=== PATIENT | female | born 1945 | race Caucasian/White ===

== ENCOUNTER → 2019-07-20 | Outpatient (CLI) | payer OTHER, MEDICARE ==
[~2019-07-20] VITALS: Ht 170.2 cm; Wt 83.9 kg
[~2019-07-20] MED LIST: ADULT LOW DOSE81 MG PO; ASPIR 8181 MG PO; AVAPRO 150 MG150 M1 PO; CALCIUM 500 +1 EAC5 PO; CALCIUM OYSTER500 MG PO; CELEXA 20 MG TA20 M1 PO; FIBER 61 EACH PO; FISHOIL; LISINOPRIL5 MG PO; MENEST0.625 MG PO; MULTI-VITAMIN1 EAC1 PO; OMEPRAZOLE 20 M20 M1 PO; SIMVASTATIN20 MG PO; SIMVASTATIN40 MG PO; STOOL SOFTENER240 MG PO; SYNTHROID112 MCG PO; TIROSINT100 MCG PO; VITAMIN D-32000 UNIT PO; VITAMIN D400 UNI1 PO
[2019-07-20 07:21] VITALS: BP 131/57
[2019-07-20 07:45] LABS: HEMATOCRIT 35.1 % (37.0-47.0); HEMOGLOBIN 12.1 gm/dL (12.0-15.0); MCH 33.9 pg (26.0-34.0); MCHC 34.5 g/dL (28.0-37.0); MCV 98.3 fL (80.0-100.0); RBC 3.58 mil/uL (4.20-5.00); RDW 12.6 % (10.5-14.5); WBC 4.3 thou/uL (4.0-11.0)
[2019-07-20 07:54] LABS: CALCIUM 8.8 mg/dL (8.5-10.1); CREATININE 0.8 mg/dL (0.6-1.0)
--- NOTE | 2019-07-23 09:32 | CATHLAB ---
[facility] [address] [place] [address] INVASIVE PROCEDURE REPORT Name: DELLAFLORINDA TIFFANIE Room #: REG Milad#: [id number] ������������� Admission: 07/20/19 ������������� Attend Phys: Jim Stacy, Discharge: ��� ������������� ��� Date of : 43 �������������������� �� Report #: [id number] �������� ��������������������������������������������[id number] THIS REPORT FOR: //name// APPROVED REPORT Study performed: 07/20/2019 07:11:01 Patient Details Patient Status: Out-Patient Room #: The patient is a 74 year-old female Event Personnel Jim Stacy Instruction Librarian, Jaswant Ponce RN, Martínez Miramontes RTR Scrub, Rukhsana Lobo RTR, CLIENT SERVICES VICE PRESIDENT Monitor, Mandeep Sidhu RTR Monitor, Barrington Marley RTR Scrub Procedures Performed Art Access - R femoral artery* Jaspreet Access - R femoral vein Renal Bilateral Peripheral Angiography 7457625 CVRENALBIL Right and Left Heart Cath w/or w/o Coronarie 9704506 RLHC Aortogram Abdominal Peripheral Angio 868561 87188 Initial Mod Sed Same Phys/QHP Gr5y 217023 71376 Mod Sed Same Phys/QHP Ea 241608 Hemostasis w/ Mynx Indication Chest pain Procedure Narrative The Right Groin^ was infiltrated with 1% Lidocaine subcutaneous anesthesia. A Right Heart Catheterization was performed with a 7 Fr. [place]-Neetu catheter and pressure were recorded. Cardiac outputs were obtained by the Thermal Dilution method. A PINNACLE 6FR Sheath #[id number] sheath was inserted into the RFA 6 FAROESE^. Coronary angiography was performed using coronary diagnostic catheters. The right coronary system was accessed and visualized with a JR4 catheter. The left coronary system was accessed and visualized with a JL4 catheter. The left ventricle was accessed and visualized with a pigtail catheter. Left ventricular/Aortic Valve gradient assessed via catheter pullback. Left ventriculogram was performed in 30 degree projection. Pre-demployment femoral angiogram was performed . Closure device was deployed with a Fr MYNXGRIP 6/7F #[id number]. Hemostasis was obtained with manual pressure following sheath removal without any complications. The patient tolerated the procedure well and there were no complications associated with the procedure. There was no hematoma. [facility] [address] [place] [address] INVASIVE PROCEDURE REPORT Name: FLORINDA HULL TIFFANIE Room #: REG CL Milad#: [id number] ������������� Admission: 07/20/19 ������������� Attend Phys: Jim Stacy, Discharge: ��� ������������� ��� Date of : 43 �������������������� �� Report #: [id number] �������� ��������������������������������������������[id number] Intraoperative Conscious Sedation Sedation start time: 8:46 Case end Time: 9:21 Fentanyl 50 mcg Versed 2 mg Fluoro Time: 2.13 minutes Dose: DAP 3194.80 cGycm2 359 mGy Contrast Type and Amount: Omnipaque 120 ml Hemodynamics The right atrial mean pressure is 9 mmHg. The right ventricular pressure is 36/5 mmHg. The pulmonary artery pressure is 34/9 mmHg with a mean of 21 mmHg. The mean pulmonary capillary wedge pressure is 19 mmHg. The aortic pressure is 145/61 mmHg with a mean of 98 mmHg. The left ventricular pressure is 160/8 mmHg with a mean of mmHg. The left ventricular end diastolic pressure is 18 mmHg. The cardiac output using thermo method is 4.93 L/min. The cardiac index using thermo method is 2.52 L/min/m2. Conclusion #1 successful right heart catheterization with hemodynamics as stated above #2 left main with mild disease giving rise to LAD and circumflex #3 LAD with proximal calcification and eccentric proximal mid vessel lesion of 30-40% not flow limiting. Mild disease in diagonal system #4 small nondominant circumflex no occlusive disease #5 large dominant right coronary artery no occlusive disease #6 selective bilateral renal angiography due to suspected renal atherosclerosis and refractory hypertension. Reveals no occlusive disease in the bilateral renal arteries Recommendations plan: Continue aggressive risk factor modification. There is no indication for coronary intervention. Pulmonary pressures are only mildly elevated. Etiology of shortness of breath is not clear what defer back to pulmonary. ��������������������������������������������� <ELECTRONICALLY SIGNED> ���������������������������������������� By: Jim Stacy MD, FACC ��������������������������������������������� 07/23/19930 0 0 Jim Stacy MD, FACC /INF
== END | disposition home or self-care (01) ==
LOC: CATH 06:43
PROVIDERS: Internal Medicine Cardiovascular Disease
DX: R07.9 Chest pain, unspecified (principal); I25.10 Atherosclerotic heart disease of native coronary artery without angina pectoris; E03.9 Hypothyroidism, unspecified; D64.9 Anemia, unspecified; K21.9 Gastro-esophageal reflux disease without esophagitis; Z85.3 Personal history of malignant neoplasm of breast; Z90.49 Acquired absence of other specified parts of digestive tract; Z90.710 Acquired absence of both cervix and uterus; Z98.890 Other specified postprocedural states; Z79.899 Other long term (current) drug therapy; Z88.6 Allergy status to analgesic agent; Z88.8 Allergy status to other drugs, medicaments and biological substances; Z79.82 Long term (current) use of aspirin

== ENCOUNTER → 2020-01-29 | Outpatient (CLI) | payer OTHER, MEDICARE | LOC: SJCVC 14:00 | PROVIDERS: ATTEND Internal Medicine Cardiovascular Disease | DX: I08.0 Rheumatic disorders of both mitral and aortic valves (principal); I10 Essential (primary) hypertension; I25.10 Atherosclerotic heart disease of native coronary artery without angina pectoris; E78.00 Pure hypercholesterolemia, unspecified; Z85.3 Personal history of malignant neoplasm of breast ==

== ENCOUNTER 2020-07-16 19:30 | Inpatient (IN) | payer OTHER, MEDICARE ==
[~2020-07-16] VITALS: Ht 170.2 cm; Wt 84.4 kg
--- NOTE | ~2020-07-16 | EMS ---
[address] [address] EMS Patient Care Report Name: FLORINDA HULL Room #: REG TY Stinson#: [id number] Admission: 07/16/20 Attend Phys: Discharge: Date of : 43 Report #: [id number] THIS REPORT FOR: //name// Report Transmitted: 07/16/2020 19:11 EMS Care Summary [facility] MED-ACT Incident [id number] @ 07/16/2020 18:42 Incident Location [id number] [place] [address] Patient FLORINDA HULL Female, 75 Years 1945 Patient Address [address] [place] [address] Patient History Hypertension (HTN),Cardiac Condition - Other, Patient Allergies Codeine,Theophylline, Patient Medications Irbesartan, Torsemide, Atorvastatin, Aspirin, Simvastatin, Chief Complaint "I don't know what happened" Disposition Transported No Lights/[place] Reason Convulsions/Seizure Transported To [facility] Narrative Arrived to find pt lying supine on the ground outside of a residence just off the sidewalk. Pt was alert and bystanders were with pt. Bystanders report pt was walking and suddenly became light-headed and had a syncopal episode. Pt was lowered to the ground by her and proceeded to have "jerking motions" [address] [address] EMS Patient Care Report Name: FLORINDA HULL Room #: REG [facility].#: [id number] Admission: 07/16/20 Attend Phys: Discharge: Date of : 43 Report #: [id number] for a few seconds. When pt regained consciousness, she was alert and did not remember feeling light-headed. She states she has felt fine all day. 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 Her Behavioral Health Technician reported she had a "leaky valve, a hard heart muscle and arthrosclerosis." She was told to start a diuretic and double the dose of one of her HTN medications. She took the new med and new dose this afternoon. Upon EMS contact pt reported she felt fine. Pt denied SOA, pain, N/V, dizziness. Pt was assisted to a sitting position and remained asymptomatic. She was able to get off the ground and transfer to cot without incidence. Pt was secured to cot and taken to MICU for further evaluation. Once VS, ECG, 12-lead were done, pt made the decision to be transported. An IV was established en route. No changes in pt's condition en route. Pt was able to scoot onto the ED bed upon arrival at [facility]. Verbal report given to RN. Initial Vitals @19:02P: 86,SpO2: 94,NM Suspected: false @19:22P: 85,R: 18,BP: 128/72,Glucose: 90,SpO2: 97, @18:58P: 91,R: 18,BP: 106/55,Pain: 0/10,GCS: 15,SpO2: 95,Revised Trauma: 12,NM Suspected: false @19:10P: 86,R: 18,BP: 127/74,Pain: 0/10,SpO2: 96, Assessments @19:50MENTAL:Person Oriented,Time Oriented,Place Oriented,Event Oriented,SKIN:Diaphoresis,HEENT:Head/Face: No Abnormalities,Eyes: No Abnormalities,Neck/Airway: No Abnormalities,LUNG SOUNDS:General: No Abnormalities,ABDOMEN:General: No Abnormalities,PELVIS//GI:EXTREMITIES:PULSE:NEURO:No Abnormalities, Impression Syncope / Fainting Procedures @19:10Saline Lock 10cc (18 ga) Site: Antecubital-RightResponse: UnchangedSucceeded@19:0212-Lead ECGResponse: UnchangedSucceeded@19:00Surgical Mask on PatientResponse: Unchanged Timeline 18:41,Call Received 18:41,Psap Call 18:42,Dispatched 18:43,En Route 18:48,On Scene 18:49,At Patient 18:58,BP: 106/55 M,PULSE: 91,RR: 18 R,SPO2: 95 Ox,ETCO2: ,BG: ,PAIN: 0,GCS: 15, 19:00,Surgical Mask on Patient,Response: Unchanged [facility] [address] [place] [address] EMS Patient Care Report Name: FLORINDA HULL TIFFANIE Room #: REG TY Stinson#: [id number] Admission: 07/16/20 Attend Phys: Discharge: Date of : 43 Report #: [id number] 19:02,12-Lead ECG,Response: UnchangedSucceeded, 19:02,BP: / M,PULSE: 86,RR: R,SPO2: 94 Ox,ETCO2: ,BG: ,PAIN: ,GCS: , 19:07,Depart Scene 19:10,Saline Lock 10cc 18 ga Site: Antecubital-Right,Response: UnchangedSucceeded, 19:10,BP: 127/74 M,PULSE: 86,RR: 18 R,SPO2: 96 Ox,ETCO2: ,BG: ,PAIN: 0,GCS: , 19:22,BP: 128/72 M,PULSE: 85,RR: 18 R,SPO2: 97 Ox,ETCO2: ,B,PAIN: ,GCS: , 19:24,At Destination 19:51,Call Closed Disclaimer v1.1 Copyright 2020 [employer] This EMS Care Summary contains data elements from the applicable legal record (which may be displayed differently). It is designed to provide pertinent information for the following purposes: continuity of care, clinical quality, and state data reporting. The complete legal record is available to ED staff and administrators of the receiving hospital in [employer]'s Patient Tracker. All data is provided "as is."
[2020-07-16 19:30] VITALS: BP 140/53
[~2020-07-16 19:30] MED LIST changes: -LIPITOR40 MG PO; -PROBIOTIC1 EAC1 PO; -PROBIOTIC1 EAC7 PO; -TORSEMIDE10 MG PO
[2020-07-16 19:59] LABS: HEMATOCRIT 34.1 % (37.0-47.0); MCH 34.6 pg (26.0-34.0); MCHC 35.3 g/dL (28.0-37.0); MCV 97.9 fL (80.0-100.0); RBC 3.48 mil/uL (4.20-5.00); RDW 12.3 % (10.5-14.5); WBC 5.5 thou/uL (4.0-11.0)
[2020-07-16 20:11] LABS: ANION GAP 12 mmol/L (7-16); BUN 15 mg/dL (7-18); CALCIUM 8.9 mg/dL (8.5-10.1); CHLORIDE 96 mmol/L (98-107); CO2 25 mmol/L (21-32); CREATININE 0.8 mg/dL (0.6-1.0); GLUCOSE 103 mg/dL (74-106); POTASSIUM 4.1 mmol/L (3.5-5.1); SODIUM 133 mmol/L (136-145)
[2020-07-16 20:13] LABS: TROPONIN-I <0.06 ng/mL (<0.06)
[2020-07-16 20:16] LABS: APTT 27.1 Seconds (24.5-32.8); PROTIME 10.4 Seconds (9.3-11.4)
[2020-07-16] MEDS ORDERED: TORSEMIDE10 MG PO (20:21)
[2020-07-16] MEDS ORDERED: LIPITOR40 MG PO (20:22)
[2020-07-16] MEDS ORDERED: PROBIOTIC1 EAC7 PO (20:23)
[2020-07-16] MEDS ORDERED: PROBIOTIC1 EAC1 PO (20:26)
[2020-07-16 21:31] LABS: URINE BILIRUBIN NEGATIVE (Negative); URINE BLOOD NEGATIVE (Negative); URINE CLARITY CLEAR; URINE COLOR YELLOW; URINE GLUCOSE-RANDOM* NEGATIVE (Negative); URINE KETONES NEGATIVE (Negative); URINE NITRITE-REFLEX NEGATIVE (Negative); URINE PROTEIN (DIPSTICK) NEGATIVE (Negative); URINE UROBILINOGEN 0.2 E.U./dl (0.2-1.0)
[2020-07-16 21:46] LABS: URINE LEUKOCYTES-REFLEX 1+ (Negative)
[2020-07-16 21:53] LABS: SQUAMOUS 0-3 Few /LPF (0-3)
[2020-07-16 21:54] LABS: BACTERIA-REFLEX 1-9 Few /HPF (None Seen); CASTS None Seen /LPF (None Seen); CRYSTALS None Seen /LPF (None Seen); URINE RBC None Seen /HPF (0-2); URINE WBC-REFLEX 0-5 Rare /HPF (0-5)
[2020-07-16 23:28] VITALS: BP 102/44
--- NOTE | 2020-07-16 23:29 | NUR ---
Attempted to call report to medical nurse. Unable to take report and will call back.
--- NOTE | 2020-07-16 23:55 | NUR ---
Report attempted to [facility] nurse. Unable to take report
[2020-07-17] VITALS (10 sets, daily range): BP systolic 114–137; BP diastolic 47–73
--- NOTE | 2020-07-17 04:10 | NUR ---
ASSUMED PT CARE AT 0020. PT IS A&OX4. IV IS IN RIGHT AC, NS RUNNING AT 50 MLS/HR. PT IS ON ROOM AIR. PT DENIES PAIN. PT IS WEARING BILATERAL SCD'S. PT IS A LITTLE UNSTEADY ON HER FEET.PT HAS BEEN INSTRUCTED TO CALL NURSES STATION WHEN SHE NEEDS TO GET UP. PT MAKES NEEDS KNOWN. PT IS SLEEPING IN HER ROOM. WILL CONTINUE TO MONITOR.
--- NOTE | 2020-07-17 04:16 | NUR ---
Pt admitted from ED approx 0020. A/OX4,VSS. Up with SBA d/t syncope episode,orthostatic BP's WNL.Denies pain on assessment, has a non productive cough and LOPEZ at times. Fall education reinforced,agrees to call for help as needed. Skin C/D/I. No N/V.IVF infusing via RAC w/o problems. Fall precautions in place. Resting quietly.
[2020-07-17 05:58] LABS: HEMATOCRIT 32.8 % (37.0-47.0); HEMOGLOBIN 11.4 gm/dL (12.0-15.0); MCH 34.3 pg (26.0-34.0); MCHC 34.7 g/dL (28.0-37.0); MCV 98.8 fL (80.0-100.0); RBC 3.32 mil/uL (4.20-5.00); RDW 12.9 % (10.5-14.5); WBC 5.2 thou/uL (4.0-11.0)
[2020-07-17 06:57] LABS: ANION GAP 10 mmol/L (7-16); BUN 17 mg/dL (7-18); CALCIUM 8.7 mg/dL (8.5-10.1); CHLORIDE 100 mmol/L (98-107); CO2 24 mmol/L (21-32); CREATININE 0.9 mg/dL (0.6-1.0); GLUCOSE 90 mg/dL (74-106); POTASSIUM 4.2 mmol/L (3.5-5.1); SODIUM 134 mmol/L (136-145); TROPONIN-I <0.06 ng/mL (<0.06)
--- NOTE | 2020-07-17 08:22 | EKG ---
[facility] [place] [address] ELECTROCARDIOGRAM REPORT Name: DELLAFLORINDA TIFFANIE Room #: 456-P ADM IN M.R.#: [id number] Admission: 07/16/20 Attend Phys: Sung Monahan Discharge: Date of : 43 Report #: [id number] THIS REPORT FOR: cc: Kory Mcgovern MD, Bernard O. MD Couchonnal, Luis F. 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
--- NOTE | 2020-07-17 12:53 | NUR ---
Pt REFUSED P.T. EVAL D/T HAVING NO ISSUES WITH ANY OF HER MOBILITY. Pt STATES THAT SHE HAS BEEN GETTING AROUND JUST FINE WHILE SHE HAS BEEN HERE AND IS SAFE AND DOES NOT NEED ANY P.T. AT ALL. Pt AND NSG INSTR TO HAVE Pt AMBULATE WITH NSG IN THE HALLWAYS WHILE SHE IS HERE TO KEEP UP HER STRENGTH AND ENDURANCE.
--- NOTE | 2020-07-17 13:42 | NUR ---
PT ADMITTED RLEATED TO SYNCOPAL EPISODE. CM REVIEWED CHART AND SPOKE WITH CARE TEAM. CM CALLED AND SPOKE WITH PT'S SPOUSE AT BEDSIDE HE INDICATED THEY LIVE IN A RANCH STYLE HOUSE WITH NO STEPS TO ENTER AND NO STEPS INSIDE. 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 HE INDICATED NO HH HX. PCPC ID DR. ANNE-MARIE VILLATORO. SPOUSE INDICATED THEY ANTICPATE PT RETURNING HOME ONCE MEDICALLY STABLE. CARE TEAM MENTIONED POSSIBLE NEED FOR OUTPATIENT EVENT RECORDER. CM TO FOLLOW INDICATED WITH DC PLANNING.
--- NOTE | 2020-07-17 16:47 | NUR ---
PT A&OX4, VSS, DENIES PAIN. PATIENT AT BEDSIDE. PATIENT DENIES SOA, DIZZINESS. PATIENT STEADY ON FEET TO BATHROOM. ORTHOSTATIC BP TAKEN. NO SIGNS OF DISTRESS. WILL CONTINUE TO MONITOR.
--- NOTE | 2020-07-18 04:16 | NUR ---
ASSUMED PT CARE AT 1915. PT IS A&OX4. PT VITAL SIGNS STABLE. PT HAS NO COMPLAINTS OF PAIN. PT MAKES NEEDS KNOWN. PT TAKES MEDICATION WHOLE. PT STATES UNDERSTANDING OF NEW EDUCATION KNOWN.PT TOOK A SPOT BATH. PT IS LOOKING FORWARD TO GOING HOME. WILL CONTINUE TO MONITOR.
[2020-07-18 07:24] VITALS: BP 127/57
[2020-07-18 09:27] VITALS: BP 127/57
[2020-07-18 10:38] VITALS: BP 127/57
--- NOTE | 2020-07-18 11:24 | NUR ---
PT IS A&OX4, VSS, DENIES PAIN. DENIES SOA, DIZZINESS, N/V. IV REMOVED. PATIENT AT BEDSIDE. NO SIGNS OF DISTRESS. PATIENT AWARE OF CARDIOLOGY APPOINTMENT. PATIENT AWARE TO TAKE 150MG IRBESARTAN INSTEAD OF 300MG SHE WAS TAKING. CONTINUED MED LIST WENT OVER WITH PATIENT. NO SIGNS OF DISTRESS AT DISCHARGE.
== END 2020-07-18 11:53 | disposition home or self-care (01) | DRG 315 ==
LOC: ER 19:30 → EROBS 23:22 → 4W 23:22
PROVIDERS: Emergency Medicine; Nurse Practitioner Family; ADMIT Hospitalist; ATTEND Hospitalist
DX: I95.9 Hypotension, unspecified (principal); E87.1 Hypo-osmolality and hyponatremia; E03.9 Hypothyroidism, unspecified; K21.9 Gastro-esophageal reflux disease without esophagitis; I25.10 Atherosclerotic heart disease of native coronary artery without angina pectoris; K59.00 Constipation, unspecified; I08.0 Rheumatic disorders of both mitral and aortic valves; G47.00 Insomnia, unspecified; Z85.3 Personal history of malignant neoplasm of breast; Z92.21 Personal history of antineoplastic chemotherapy; Z92.3 Personal history of irradiation; Z90.49 Acquired absence of other specified parts of digestive tract; Z90.710 Acquired absence of both cervix and uterus; Z90.13 Acquired absence of bilateral breasts and nipples; Z88.6 Allergy status to analgesic agent; Z79.899 Other long term (current) drug therapy
CPT/HCPCS: 10045

== ENCOUNTER → 2020-07-16 | Outpatient (CLI) | payer OTHER, MEDICARE ==
[~2020-07-16] MED LIST changes: +LIPITOR40 MG PO; +PROBIOTIC1 EAC1 PO; +PROBIOTIC1 EAC7 PO; +TORSEMIDE10 MG PO
== END ==
LOC: SJCVC 11:06 → SJCVCIMAG 11:06
PROVIDERS: ATTEND Internal Medicine Cardiovascular Disease
DX: I08.0 Rheumatic disorders of both mitral and aortic valves (principal); I11.9 Hypertensive heart disease without heart failure; I25.10 Atherosclerotic heart disease of native coronary artery without angina pectoris; E78.00 Pure hypercholesterolemia, unspecified; Z79.899 Other long term (current) drug therapy; Z85.3 Personal history of malignant neoplasm of breast

== ENCOUNTER → 2020-07-28 | Outpatient (CLI) | payer OTHER, MEDICARE ==
[~2020-07-28] MED LIST changes: +LIPITOR40 MG PO; +PROBIOTIC1 EAC1 PO; +PROBIOTIC1 EAC7 PO; +TORSEMIDE10 MG PO
== END ==
LOC: SJCVC 09:58
PROVIDERS: ATTEND Internal Medicine Cardiovascular Disease
DX: I25.10 Atherosclerotic heart disease of native coronary artery without angina pectoris (principal); I10 Essential (primary) hypertension; E78.00 Pure hypercholesterolemia, unspecified; I08.0 Rheumatic disorders of both mitral and aortic valves; R06.09 Other forms of dyspnea; R68.89 Other general symptoms and signs; Z79.899 Other long term (current) drug therapy; Z87.898 Personal history of other specified conditions

== ENCOUNTER → 2020-08-05 | Outpatient (CLI) | payer OTHER, MEDICARE | LOC: RAD 14:44 | PROVIDERS: ATTEND Internal Medicine | DX: J98.4 Other disorders of lung (principal); M25.78 Osteophyte, vertebrae ==

== ENCOUNTER → 2020-11-10 | Outpatient (CLI) | payer OTHER, MEDICARE | LOC: SJCVCIMAG 09:02 | PROVIDERS: ATTEND Internal Medicine Cardiovascular Disease | DX: I08.3 Combined rheumatic disorders of mitral, aortic and tricuspid valves (principal); I10 Essential (primary) hypertension; E78.5 Hyperlipidemia, unspecified; Z79.82 Long term (current) use of aspirin; Z79.899 Other long term (current) drug therapy; Z85.3 Personal history of malignant neoplasm of breast; Z92.21 Personal history of antineoplastic chemotherapy ==

== ENCOUNTER 2021-01-27 13:54 | Emergency (ER) | payer OTHER, MEDICARE ==
[~2021-01-27] VITALS: Ht 170.2 cm; Wt 72.6 kg
--- NOTE | ~2021-01-27 | EMS ---
[facility] [address] [place] [address] EMS Patient Care Report Name: FLORINDA HULL Room #: REG TY Stinson#: [id number] Admission: 01/27/21 Attend Phys: Discharge: Date of : 43 Report #: [id number] THIS REPORT FOR: //name// Report Transmitted: 01/27/2021 15:22 EMS Care Summary [facility] MED-ACT Incident [id number] @ 01/27/2021 13:13 Incident Location [address] [place] [address] Patient NEDA HULL Female, 75 Years 1945 Patient Address [address] [place] [address] Patient History Chronic Obstructive Pulmonary Disease (COPD),Breast Cancer,Cardiac Condition - Other,Anemia, Patient Allergies Codeine,Theophylline, Patient Medications Torsemide, Other, Simvastatin, Levothyroxine, Aspirin, Chief Complaint syncope Disposition Transported No Lights/[place] Reason Unknown Problem/Person Down Transported To [facility] Narrative Arrived to find pt seated at table in restaurant in the presence of family member and [employer]32 personnel. [facility] [address] [place] [address] EMS Patient Care Report Name: FLORINDA HULL Room #: REG Sylvie.#: [id number] Admission: 01/27/21 Attend Phys: Discharge: Date of : 43 Report #: [id number] Pts niece reports pt was seated at the table and had finished her lunch. Pt was just drinking a glass of wine and all the sudden she just "slumped down in her chair". Pt did pass-out for a brief period of time but then came to. Pt reports she was seated at the table and felt like she needed to use the restroom. Pt also reports that she just feels "cloudy" all of the sudden. Pt denies any chest pain, sob, headache, speech problems, blurred vision, dizziness or recent illness. Pt was moving around during original blood pressure assessment so we weren't able to obtain an accurate reading. Pt was assisted to the cot and laid in the supine position. Pt reported feeling a little better supine and her skin color improved. Pt secured with cot straps and taken to MICU for further assessment and transported non-emergent to [facility] as pt requested. Pt condition remained unchanged throughout transport. Pt was able to self-transfer from cot to hospital bed without incident. Pt report and transfer of care given to HEALTH AND PHYSICAL EDUCATION TEACHER room #10. Initial Vitals @13:30P: 76,FL Suspected: false @13:28P: 75,SpO2: 99,FL Suspected: false @13:24P: 78,R: 16,BP: 120/64,GCS: 15,Temp: 95.8F,Glucose: 89,SpO2: 100,Revised Trauma: 12, @PTAP: 75,R: 18,GCS: 15,SpO2: 99, @13:47P: 75,R: 16,BP: 129/77,Pain: 0/10,GCS: 15,SpO2: 100,Revised Trauma: 12, Assessments @13:24MENTAL:Person Oriented,Time Oriented,Event Oriented,Place Oriented,SKIN:Diaphoresis,Pale,HEENT:Head/Face: No Abnormalities,Neck/Airway: No Abnormalities,LUNG SOUNDS:General: No Abnormalities,ABDOMEN:General: No Abnormalities,PELVIS//GI:EXTREMITIES:Left Arm: No Abnormalities,Right Arm: No Abnormalities,Left Leg: No Abnormalities,Right Leg: No Abnormalities,PULSE:Radial: 2+ Normal,NEURO: Impression Syncope / Fainting Procedures @13:24Surgical Mask on PatientResponse: Unchanged@13:39Saline Lock 10cc (20 ga) Site: Hand-RightResponse: UnchangedSucceeded@13:3012-Lead ECG Timeline REHABILITATION CLERK,BP: / M,PULSE: 75,RR: 18 R,SPO2: 99 Ox,ETCO2: ,BG: ,PAIN: ,GCS: 15, [facility] [address] [place] [address] EMS Patient Care Report Name: FLORINDA HULL Room #: REG [facility].#: [id number] Admission: 01/27/21 Attend Phys: Discharge: Date of : 43 Report #: [id number] 13:12,Call Received 13:12,Psap Call 13:13,Dispatched 13:14,En Route 13:18,On Scene 13:20,At Patient 13:24,Surgical Mask on Patient,Response: Unchanged 13:24,BP: 120/64 M,PULSE: 78,RR: 16 R,SPO2: 100 Ox,ETCO2: ,B,PAIN: ,GCS: 15, 13:28,BP: / M,PULSE: 75,RR: R,SPO2: 99 Ox,ETCO2: ,BG: ,PAIN: ,GCS: , 13:30,12-Lead ECG, 13:30,BP: / M,PULSE: 76,RR: R,SPO2: Ox,ETCO2: ,BG: ,PAIN: ,GCS: , 13:39,Saline Lock 10cc 20 ga Site: Hand-Right,Response: UnchangedSucceeded, 13:42,Depart Scene 13:47,BP: 129/77 M,PULSE: 75,RR: 16 R,SPO2: 100 Ox,ETCO2: ,BG: ,PAIN: 0,GCS: 15, 13:51,At Destination 14:15,Call Closed Disclaimer v1.1 Copyright 2020 [employer] This EMS Care Summary contains data elements from the applicable legal record (which may be displayed differently). It is designed to provide pertinent information for the following purposes: continuity of care, clinical quality, and state data reporting. The complete legal record is available to ED staff and administrators of the receiving hospital in [employer]'s Patient Tracker. All data is provided "as is."
[2021-01-27 15:16] LABS: URINE BILIRUBIN NEGATIVE (Negative); URINE BLOOD NEGATIVE (Negative); URINE CLARITY CLEAR; URINE COLOR YELLOW; URINE GLUCOSE-RANDOM* NEGATIVE (Negative); URINE KETONES NEGATIVE (Negative); URINE LEUKOCYTES-REFLEX TRACE (Negative); URINE NITRITE-REFLEX NEGATIVE (Negative); URINE PROTEIN (DIPSTICK) NEGATIVE (Negative); URINE SPECIFIC GRAVITY 1.015 (1.005-1.035); URINE UROBILINOGEN 0.2 E.U./dl (0.2-1.0)
[2021-01-27 15:21] LABS: ABSOLUTE NEUTROPHILS 5.9 thou/uL (1.4-8.2); BASOPHILS 0.7 % (0.0-2.0); EOSINOPHILS 1.1 % (0.0-3.0); HEMATOCRIT 35.3 % (37.0-47.0); HEMOGLOBIN 12.2 gm/dL (12.0-15.0); LYMPHOCYTES 14.6 % (24.0-44.0); MCH 34.1 pg (26.0-34.0); MCHC 34.5 g/dL (28.0-37.0); MCV 98.9 fL (80.0-100.0); MONOCYTES 7.9 % (1.0-8.0); PLATELET COUNT 232 thou/uL (150-400); POLYS 75.7 % (36.0-66.0); RBC 3.57 mil/uL (4.20-5.00); WBC 7.8 thou/uL (4.0-11.0)
--- NOTE | 2021-01-27 15:22 | EKG ---
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
[2021-01-27 15:28] LABS: ANION GAP 7 mmol/L (7-16); BUN 24 mg/dL (7-18); CALCIUM 8.8 mg/dL (8.5-10.1); CHLORIDE 93 mmol/L (98-107); CO2 27 mmol/L (21-32); CREATININE 1.2 mg/dL (0.6-1.0); GLUCOSE 88 mg/dL (74-106); POTASSIUM 4.1 mmol/L (3.5-5.1); SODIUM 127 mmol/L (136-145)
[2021-01-27 15:37] LABS: TROPONIN-I <0.06 ng/mL (<0.06)
[2021-01-27 17:02] VITALS: BP 143/56
== END 2021-01-27 17:02 | disposition home or self-care (01) ==
LOC: ER 13:54
PROVIDERS: Nurse Practitioner
DX: R55 Syncope and collapse (principal); E03.9 Hypothyroidism, unspecified; K21.9 Gastro-esophageal reflux disease without esophagitis; Z90.49 Acquired absence of other specified parts of digestive tract; Z90.710 Acquired absence of both cervix and uterus; Z90.89 Acquired absence of other organs; Z86.2 Personal history of diseases of the blood and blood-forming organs and certain disorders involving the immune mechanism; Z79.899 Other long term (current) drug therapy; Z79.82 Long term (current) use of aspirin; Z88.8 Allergy status to other drugs, medicaments and biological substances; Z88.5 Allergy status to narcotic agent

== ENCOUNTER → 2021-01-30 | Outpatient (CLI) | payer OTHER, MEDICARE | LOC: SJCVC 13:49 | PROVIDERS: ATTEND Nurse Practitioner | DX: I25.10 Atherosclerotic heart disease of native coronary artery without angina pectoris (principal); E78.00 Pure hypercholesterolemia, unspecified; R55 Syncope and collapse; I10 Essential (primary) hypertension; I08.0 Rheumatic disorders of both mitral and aortic valves; D64.9 Anemia, unspecified; E03.9 Hypothyroidism, unspecified; J18.9 Pneumonia, unspecified organism; D58.8 Other specified hereditary hemolytic anemias; Z85.3 Personal history of malignant neoplasm of breast ==

== ENCOUNTER → 2021-08-10 | Outpatient (CLI) | payer OTHER, MEDICARE | LOC: SJCVC 11:04 | PROVIDERS: ATTEND Internal Medicine Cardiovascular Disease | DX: I25.10 Atherosclerotic heart disease of native coronary artery without angina pectoris (principal); I08.0 Rheumatic disorders of both mitral and aortic valves; I10 Essential (primary) hypertension; E78.00 Pure hypercholesterolemia, unspecified; R55 Syncope and collapse; E03.9 Hypothyroidism, unspecified; Z88.5 Allergy status to narcotic agent; Z88.8 Allergy status to other drugs, medicaments and biological substances; Z79.82 Long term (current) use of aspirin; Z79.899 Other long term (current) drug therapy; Z72.89 Other problems related to lifestyle ==

== ENCOUNTER 2021-09-06 19:27 | Emergency (ER) | payer OTHER, MEDICARE ==
[~2021-09-06] VITALS: Ht 167.6 cm; Wt 83.9 kg
[2021-09-06] MEDS ORDERED: SIMVASTATIN80 MG PO (19:38)
[2021-09-06] MEDS ORDERED: VITAMIN B COMP1 EACH PO (19:38)
[2021-09-06] MEDS ORDERED: TRELEGY ELLIPT1 EAC1 INH (19:39)
[2021-09-06 20:21] LABS: ABSOLUTE NEUTROPHILS 4.8 thou/uL (1.4-8.2); BASOPHILS 0.8 % (0.0-2.0); EOSINOPHILS 2.3 % (0.0-3.0); HEMATOCRIT 36.4 % (37.0-47.0); HEMOGLOBIN 12.4 gm/dL (12.0-15.0); LYMPHOCYTES 20.3 % (24.0-44.0); MCH 33.4 pg (26.0-34.0); MCV 98.1 fL (80.0-100.0); MONOCYTES 8.7 % (1.0-8.0); PLATELET COUNT 208 thou/uL (150-400); POLYS 67.9 % (36.0-66.0); RBC 3.71 mil/uL (4.20-5.00); RDW 13.1 % (10.5-14.5)
[2021-09-06 20:21] LABS: URINE BILIRUBIN NEGATIVE (Negative); URINE BLOOD NEGATIVE (Negative); URINE CLARITY CLEAR; URINE COLOR YELLOW; URINE GLUCOSE-RANDOM* NEGATIVE (Negative); URINE KETONES NEGATIVE (Negative); URINE NITRITE-REFLEX NEGATIVE (Negative); URINE PROTEIN (DIPSTICK) NEGATIVE (Negative); URINE UROBILINOGEN 0.2 E.U./dl (0.2-1.0)
[2021-09-06 20:23] LABS: URINE LEUKOCYTES-REFLEX 1+ (Negative)
[2021-09-06 20:34] LABS: CALCIUM 8.8 mg/dL (8.5-10.1); CREATININE 0.8 mg/dL (0.6-1.0)
[2021-09-06 20:40] LABS: BACTERIA-REFLEX 1-9 Few /HPF (None Seen); CASTS None Seen /LPF (None Seen); CRYSTALS None Seen /LPF (None Seen); SQUAMOUS 0-3 Few /LPF (0-3); URINE RBC 1-2 Rare /HPF (NONE SEEN); URINE WBC-REFLEX 0-5 Rare /HPF (0-5)
[2021-09-06 20:44] LABS: ALBUMIN 3.7 g/dL (3.4-5.0); MAGNESIUM 2.1 mg/dL (1.8-2.4); TOTAL BILIRUBIN 0.3 mg/dL (0.2-1.0); TOTAL PROTEIN 7.1 g/dL (6.4-8.2)
[2021-09-06 21:22] VITALS: BP 136/56
--- NOTE | 2021-09-07 07:18 | EKG ---
[place] [address] [address] [facility] [place] [address] ELECTROCARDIOGRAM REPORT Name: HULLFLORINDA STEVENS [facility] [id number] Admission: 09/06/21 Attend Phys: Discharge: 09/06/21 Date of : 43 Report #: [id number] [facility] ED Test Date: 2021-09-06 Test Time: 20:00:28 Pat Name: FLORINDA HULL Department: Room: Gender: F Naturalization Examiner: : 1945 Requested By: Rodrick Phillips Order Number: [id number] MD: Fred Damico Measurements Intervals [place] Rate: 79 P: 38 [place]: 175 QRS: 33 QRSD: 101 T: 32 QT: 386 QTc: 443 Interpretive Statements Sinus rhythm Probable left ventricular hypertrophy Compared to ECG 01/27/2021 14:36:57 No significant changes Electronically Signed On 09-07-2021 7:17:56 HANDSTITCHING MACHINE 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
== END 2021-09-06 21:23 | disposition home or self-care (01) ==
LOC: ER 19:27
PROVIDERS: Emergency Medicine
DX: I10 Essential (primary) hypertension (principal); E03.9 Hypothyroidism, unspecified; K21.9 Gastro-esophageal reflux disease without esophagitis; Z90.89 Acquired absence of other organs; Z90.49 Acquired absence of other specified parts of digestive tract; Z90.710 Acquired absence of both cervix and uterus; Z79.82 Long term (current) use of aspirin; Z79.899 Other long term (current) drug therapy; Z88.5 Allergy status to narcotic agent

== ENCOUNTER → 2021-11-05 | Outpatient (CLI) | payer OTHER, MEDICARE ==
[~2021-11-05] MED LIST changes: +SIMVASTATIN80 MG PO; +TRELEGY ELLIPT1 EAC1 INH; +VITAMIN B COMP1 EACH PO
== END ==
LOC: NUC 13:16
PROVIDERS: ATTEND Nurse Practitioner
DX: M85.88 Other specified disorders of bone density and structure, other site (principal); Z78.0 Asymptomatic menopausal state